=== PATIENT | female | born 1990 ===

== ENCOUNTER 2023-05-05 05:50 | Inpatient (IN) | payer OTHER ==
[2023-05-05] MEDS ORDERED: CITRIC ACID/SODIUM CITRATE 30 ML UNIT-DOSE CUP PO ONE (07:00)
[2023-05-05] MEDS ORDERED: ELECTROLYTE-148 SOLN 500 ML IV SCH ×2 (07:00→07:30)
[2023-05-05 07:21] VITALS: BMI 26.0
[2023-05-05] MEDS ORDERED: ELECTROLYTE-148 SOLN 1,000 ML IV SCH (08:30)
[2023-05-05] MEDS ORDERED: METHYLERGONOVINE MALEATE 0.2 MG/1 ML AMP IM PRN (10:00)
[2023-05-05] MEDS ORDERED: SENNOSIDES/DOCUSATE COMBO (SENNA PLUS) TABLET (UD) PO PRN (10:00)
[2023-05-05] MEDS ORDERED: ACETAMINOPHEN 1000 MG/100 ML BAG IVPB PRN (10:02)
[2023-05-05] MEDS: FERROUS SO4 325 MG TABLET (FP) PO SCH ×2 (10:10→21:06)
[2023-05-05] MEDS: PRENATAL VITAMINS W/ FOLIC ACID TABLET (FP) PO SCH (10:10)
[2023-05-05] MEDS ORDERED: OXYTOCIN 20 UNITS in 0.9% NS 20 UNIT/1,000 ML INFUS.BAG IV ONE (10:37)
[2023-05-05] MEDS: OXYTOCIN 20 UNITS in 0.9% NS 20 UNIT/1,000 ML INFUS.BAG IV SCH ×2 (11:30→18:34)
[2023-05-05] MEDS: IBUPROFEN 800 MG/8 ML IJ IVPB PRN (19:57)
[2023-05-05] MEDS ORDERED: oxyCODONE HCL 5 MG TABLET PO PRN ×2 (22:00)
[2023-05-06] MEDS: IBUPROFEN 800 MG/8 ML IJ IVPB PRN (02:26)
[2023-05-06 07:01] LABS: BASO % 0.4 % (0-2.0); EOS % 0.5 % (0-4.5); HEMATOCRIT 28.1 % (32.4-45.2); HEMOGLOBIN 9.3 GM/dL (10.7-15.3); LYMPH % 19.4 % (8-40); MCH 32.5 pg (25.7-33.7); MEAN CELL VOLUME 98.5 fl (80-96); MEAN PLT VOLUME 11.4 fl (7.5-11.1); MONO % 7.6 % (3.8-10.2); NEUT % 72.1 % (42.8-82.8); PLATELET COUNT 94 10^3/uL (134-434); RBC 2.86 M/mm3 (3.60-5.2); RDW 13.6 % (11.6-15.6); WHITE BLOOD COUNT 11.6 K/mm3 (4.0-10.0)
[2023-05-06] MEDS: IBUPROFEN 600 MG TABLET (FP) PO PRN ×3 (09:15→22:00)
[2023-05-06] MEDS: PRENATAL VITAMINS W/ FOLIC ACID TABLET (FP) PO SCH (09:25)
[2023-05-06] MEDS ORDERED: BISACODYL 10 MG SUPP.RECT RC PRN (10:00)
[2023-05-06] MEDS: FERROUS SO4 325 MG TABLET (FP) PO SCH ×2 (11:35→22:00)
[2023-05-06] MEDS: ACETAMINOPHEN 325 MG TABLET (FP) PO PRN (11:35)
[2023-05-06] MEDS: OXYTOCIN 20 UNITS in 0.9% NS 20 UNIT/1,000 ML INFUS.BAG IV SCH (12:07)
[2023-05-07] MEDS: SIMETHICONE 80 MG TAB.CHEW (FP) PO PRN ×3 (06:23→22:10)
[2023-05-07] MEDS: FERROUS SO4 325 MG TABLET (FP) PO SCH ×2 (09:38→21:29)
[2023-05-07] MEDS: PRENATAL VITAMINS W/ FOLIC ACID TABLET (FP) PO SCH (09:38)
[2023-05-07] MEDS: ACETAMINOPHEN 325 MG TABLET (FP) PO PRN ×2 (10:43→20:22)
[2023-05-07] MEDS: IBUPROFEN 600 MG TABLET (FP) PO PRN ×2 (18:04→22:10)
[2023-05-08] MEDS: SIMETHICONE 80 MG TAB.CHEW (FP) PO PRN (03:10)
[2023-05-08] MEDS: IBUPROFEN 600 MG TABLET (FP) PO PRN ×2 (03:10→09:14)
[2023-05-08] MEDS: PRENATAL VITAMINS W/ FOLIC ACID TABLET (FP) PO SCH (09:14)
[2023-05-08] MEDS: FERROUS SO4 325 MG TABLET (FP) PO SCH (09:14)
[2023-05-08 11:45] VITALS: BP 109/68; PULSE 80; RESP 17; TEMP 97.7
== END 2023-05-08 14:50 | disposition home or self-care (01) | DRG 540 ==
LOC: JLDR 05:50 → J3W 11:30
PROVIDERS: ADMIT Obstetrics & Gynecology; ATTEND Obstetrics & Gynecology
PROC: 10D00Z1 Extraction of Products of Conception, Low, Open Approach (ICD-10-PCS; principal; 2023-05-05)
PROC: 0UL70ZZ Occlusion of Bilateral Fallopian Tubes, Open Approach (ICD-10-PCS; 2023-05-05)
DX: O82 Encounter for cesarean delivery without indication (principal); Z30.2 Encounter for sterilization; Z3A.39 39 weeks gestation of pregnancy; Z37.0 Single live birth
CPT/HCPCS: 36415; 85025; 88302-TC; 88305-TC; 88307-TC; 94010